=== PATIENT | female | born 1945 ===

== ENCOUNTER 2023-02-13 07:30 | Inpatient (IN) | payer OTHER ==
[~2023-02-13] VITALS: Ht 160 cm; Wt 67.1 kg
[2023-02-13] MEDS ORDERED: DILTIA PO (08:01)
[2023-02-13] MEDS ORDERED: HORIZANT300 MG PO (08:01)
[2023-02-13] MEDS ORDERED: ATORVASTATIN CA20 MG PO (08:02)
[2023-02-13] MEDS ORDERED: SYMBICORT 16010.2 GM IH (08:02)
[2023-02-13] MEDS ORDERED: SINGULAIR10 MG PO (08:02)
[2023-02-13] MEDS ORDERED: MAXIMUM D3325 MCG PO (08:03)
[2023-02-13] MEDS ORDERED: CLARITIN10 M1 PO (08:03)
[2023-02-13] MEDS ORDERED: RESTORIL7.5 MG PO (08:04)
[2023-02-13] MEDS ORDERED: REFRESH CLASSI1 EACH OP (08:04)
[2023-02-19] MEDS ORDERED: DUI500 PO (07:49)
[2023-02-19] MEDS ORDERED: ELIQUIS2.5 MG PO (07:49)
[2023-02-19] MEDS ORDERED: TRAM1TAB98 PO (07:49)
== END 2023-02-20 18:40 | DRG 470 ==
LOC: SURG 02-18 06:00 → O/R 02-18 06:00 → SURG 02-18 07:00
PROVIDERS: ADMIT Orthopaedic Surgery; ATTEND Orthopaedic Surgery
PROC: 0SRC0J9 Replacement of Right Knee Joint with Synthetic Substitute, Cemented, Open Approach (ICD-10-PCS; principal; 2023-02-18 07:00)
DX: M17.11 Unilateral primary osteoarthritis, right knee (principal); M22.11 Recurrent subluxation of patella, right knee; I10 Essential (primary) hypertension; Z96.651 Presence of right artificial knee joint